=== PATIENT | male | born 2000 | race Caucasian/White ===

== ENCOUNTER 2021-09-16 18:36 | Emergency (ER) | payer BC ==
[~2021-09-16] VITALS: Ht 172.7 cm; Wt 63.5 kg
[2021-09-16 18:50] VITALS: BP 136/82
--- NOTE | 2021-09-16 19:04 | NUR ---
Patient ambulated with steady gait to bed 3.
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
--- NOTE | 2021-09-16 19:18 | NUR ---
Pt report given to SERGEY AGUILAR. Transfer of care at this time.
[2021-09-16] MEDS ORDERED: IBUP-2213 PO (19:36)
[2021-09-16 19:47] VITALS: BP 135/85
--- NOTE | 2021-09-16 19:47 | NUR ---
Patient discharged with v/s stable. Written and verbal after care instructions given and explained. Patient alert, oriented and verbalized understanding of instructions. Ambulatory with steady gait. All questions addressed prior to discharge. ID band removed. Patient advised to follow up with PMD. Rx of IBUPROFEN given. Opportunity to ask questions provided and answered.
--- NOTE | 2021-09-16 19:55 | NUR ---
The patient's care was reviewed and supervised by Farzana Andersen RN.
== END 2021-09-16 19:47 | disposition home or self-care (01) ==
LOC: MED 18:36
DX: S01.81XA Laceration without foreign body of other part of head, initial encounter (principal); R03.0 Elevated blood-pressure reading, without diagnosis of hypertension; Z79.899 Other long term (current) drug therapy; V00.131A Fall from skateboard, initial encounter; Y93.89 Activity, other specified; Y92.89 Other specified places as the place of occurrence of the external cause; Y99.8 Other external cause status
CPT/HCPCS: 99282